=== PATIENT | female | born 1990 | race Caucasian/White ===

== ENCOUNTER → 2023-03-30 08:47 | Outpatient (BNVA) | payer MEDICAID, SELFPAY | PROVIDERS: Family Provider Family Medicine; PCP Family Medicine Adult Medicine; Visit Provider Family Medicine Adult Medicine | DX: R03.0 Elevated blood-pressure reading, without diagnosis of hypertension (principal); E66.9 Obesity, unspecified; Z00.00 Encounter for general adult medical examination without abnormal findings; R63.5 Abnormal weight gain; Z63.79 Other stressful life events affecting family and household; E66.01 Morbid (severe) obesity due to excess calories; Z68.36 Body mass index [BMI] 36.0-36.9, adult | CPT/HCPCS: 80053; 80061; 84443; 85025 ==

== ENCOUNTER → 2023-04-29 09:03 | Outpatient (BNVA) | payer MEDICAID, SELFPAY | PROVIDERS: Family Provider Family Medicine; PCP Family Medicine Adult Medicine; Visit Provider Family Medicine Adult Medicine | DX: R63.5 Abnormal weight gain (principal); Z00.00 Encounter for general adult medical examination without abnormal findings; Z63.79 Other stressful life events affecting family and household | CPT/HCPCS: 80053; 80061; 84443; 85025 ==